=== PATIENT | male | born 1985 | race African-American/Black ===

== ENCOUNTER 2017-08-03 02:47 | Emergency (ER) | payer SELFPAY ==
[~2017-08-03] VITALS: Ht 165.1 cm; Wt 94.2 kg
[~2017-08-03 02:47] MED LIST: DICY1TAB26 PO; NAPR-576 PO
[2017-08-03 02:55] VITALS: BP 139/90; PULSE 60; RESP 18; TEMP 97.7; O2SAT 100
[2017-08-03] MEDS ORDERED: ONDANSETRON ODT 4 MG TAB PO ONE (03:45)
--- NOTE | 2017-08-03 04:36 | PD ---
HPI Chief Complaint: Headache Time Seen by Provider: 03:32 Travel History International Travel<30 days: No Contact w/Intl Traveler<30days: No Traveled to known affect area: No History of Present Illness HPI 31-year-old male presents to the emergency department for complaint of left- sided headache. Patient has had headache for 3-5 days is primarily left sided. Patient has family history of migraines; no history of cerebral aneurysm or stroke. Patient has noted some mild photophobia but no loss of vision or double vision. Headache is not sudden onset thunderclap or worst ever. Patient has noted some increased tearing from the left eye. Patient has had no recent febrile illness but did have a first or infection last week. Patient has not recently been on antibiotic. Patient denies neck stiffness or neck pain. Patient reports that he did have significant sinus congestion last week. No chest pain no shortness of breath no vomiting. They did have some nausea but has been taking Tylenol and Excedrin. Patient rates current pain 9/10 in intensity. Patient's had no upper or lower extremity numbness tingling or weakness or ataxia of gait. Patient takes no medications on a routine basis. Has had no injury or fall. [facility] Past Medical History Narrative Medical Past medical history negative surgical history occasional alcohol use positive tobacco use family history migraines; nursing notes reviewed Medical History: Denies Significant Hx Immunizations Current: No Tetanus Vaccination: Unknown Influenza Vaccination: No Past Surgical History Surgical History: No Previous Surgery Social History Alcohol Use: Yes (OCC) Tobacco Use: Yes (QUIT 5YRS) Substance Use: No Allergies-Medications (Allergen,Severity, Reaction): Coded Allergies: No Known Allergies (Verified , 10/21/15) Reported Meds & Prescriptions Reported Meds & Active Scripts Active No Active Prescriptions or Reported Medications Review of Systems Except as stated in HPI: all other systems reviewed are Neg General / Constitutional: No: Fever, Chills Eyes: Positive: Photophobia, No: Diploplia, Blurred Vision HENT: Positive: Headaches, No: Congestion, Neck Stiffness, Neck Pain Cardiovascular: No: Chest Pain or Discomfort Respiratory: No: Shortness of Breath Gastrointestinal: No: Nausea, Vomiting Genitourinary: No: Urgency, Frequency, Dysuria, Flank Pain Musculoskeletal: No: Myalgias, Arthralgias, Pain Skin: No Rash Neurologic: No: Weakness Psychiatric: No: Anxiety Hematologic/Lymphatic: No: Lymph Node Enlargement Physical Exam Narrative GENERAL: Well-developed well-nourished male in no acute distress no respiratory distress; GCS 15 SKIN: Warm and dry. HEAD: Atraumatic. Normocephalic. EYES: Pupils equal and round. No scleral icterus. No injection or drainage. Funduscopic exam no papilledema noted ENT: No nasal bleeding or discharge. Mucous membranes pink and moist. Mild tenderness to percussion over the frontal and maxillary sinuses NECK: Trachea midline. No JVD. Supple no nuchal rigidity no meningismus CARDIOVASCULAR: Regular rate and rhythm. RESPIRATORY: No accessory muscle use. Clear to auscultation. Breath sounds equal bilaterally. GASTROINTESTINAL: Abdomen soft, non-tender, nondistended. Hepatic and splenic margins not palpable. MUSCULOSKELETAL: Extremities without clubbing, cyanosis, or edema. No obvious deformities. NEUROLOGICAL: Awake and alert. No obvious cranial nerve deficits. Motor grossly within normal limits. Five out of 5 muscle strength in the arms and legs. No limb ataxia. No pronator drift. Normal speech. PSYCHIATRIC: Appropriate mood and affect; insight and judgment normal. Data Data Last Documented VS Vital Signs Date Time Temp Pulse Resp B/P (MAP) Pulse Ox O2 Delivery O2 Flow Rate FiO2 08/03/17 02:59 18 100 Room Air 08/03/17 02:55 97.7 60 139/90 (106) Orders Orders Ondansetron Odt (Zofran Odt) (08/03/17 03:45) Ct Brain W/O Iv Contrast(Rout) (08/03/17 ) Ketorolac Inj (Toradol Inj) (08/03/17 05:00) Ed Discharge Order (08/03/17 04:55) [facility] Medical Decision Making Medical Screen Exam Complete: Yes Emergency Medical Condition: Yes Medical Record Reviewed: Yes Interpretation(s) Vital Signs Date Time Temp Pulse Resp B/P (MAP) Pulse Ox O2 Delivery O2 Flow Rate FiO2 08/03/17 02:59 18 100 Room Air 08/03/17 02:55 97.7 60 18 139/90 (106) 100 Differential Diagnosis Tension versus migrainous versus cluster versus vascular cephalgia versus musculoskeletal pain versus posterior cervicalgia versus ICH Narrative Course Patient administered Zofran 4 mg sublingual along with CT brain noncontrast Toradol 60 mg IM administered Patient informed of imaging results Headache improved and patient is stable for outpatient management Diagnosis Primary Impression: Cephalgia Qualified Codes: G44.209 - Tension-type headache, unspecified, not intractable Referrals: Primary Care Physician call for appointment Patient Instructions: General Instructions Additional Instructions: Increase fluid hydration May use ibuprofen/Advil/Motrin 800 mg as often as every 8 hours as needed for headache or pain associated with inflammation Take acetaminophen/Tylenol as needed for fever 100.4F or greater Return to the emergency department for any concerns or change in condition No work times one day Follow-up with your primary care provider Scripts No Active Prescriptions or Reported Meds Disposition: 01 DISCHARGE HOME Condition: Stable Georgia Grimm MD Aug 03, 2017 04:36
--- NOTE | 2017-08-03 04:44 | RADRPT ---
EXAM DATE/TIME: 08/03/2017 03:55 [facility] COMPARISON: No previous studies available for comparison. INDICATIONS : Cephalgia. RADIATION DOSE: 57.98 CTDIvol (mGy) MEDICAL HISTORY : None SURGICAL HISTORY : None. ENCOUNTER: Initial ACUITY: 4 - 6 days PAIN SCALE: 10/10 LOCATION: Left occipital frontal TECHNIQUE: Multiple contiguous axial images were obtained of the head. Using automated exposure control and adj ustment of the mA and/or kV according to patient size, radiation dose was kept as low as reasonably a chievable to obtain optimal diagnostic quality images. DICOM format image data is available electro nically for review and comparison. FINDINGS: CEREBRUM: The ventricles are normal for age. No evidence of midline shift, mass lesion, hemorrhage or acute in farction. No extra-axial fluid collections are seen. POSTERIOR FOSSA: The cerebellum and brainstem are intact. The 4th ventricle is midline. The cerebellopontine angle i s unremarkable. EXTRACRANIAL: The visualized portion of the orbits is intact. SKULL: The calvaria is intact. No evidence of skull fracture. CONCLUSION: 1. No evidence of acute intracranial pathology. No masses are identified.8 Bruce Segal MD on August 03, 2017 at 4:42 Board Certified Radiologist. This report was verified electronically.
[2017-08-03] MEDS ORDERED: KETOROLAC TROMETHAMINE 60 MG/2 ML (IM) VIAL IM ONE (05:00)
[2017-08-03 05:35] VITALS: BP 132/78
== END 2017-08-03 05:39 | disposition home or self-care (01) ==
LOC: PHED 02:47
DX: G44.209 Tension-type headache, unspecified, not intractable (principal)
CPT/HCPCS: 70450; 96372; 99285; J1885

== ENCOUNTER 2017-12-30 23:58 | Emergency (ER) | payer SELFPAY ==
[~2017-12-30] VITALS: Ht 172.7 cm; Wt 89.0 kg
[2017-12-31 00:51] VITALS: BP 128/57; PULSE 73; RESP 18; TEMP 98.3; O2SAT 98
[2017-12-31 01:30] VITALS: BP_SYST 122; BP_SYST 128; BP_DIAS 57; BP_DIAS 62; PULSE 72; PULSE 73; RESP 16; TEMP 98.3; O2SAT 98; O2SAT 99
[2017-12-31 02:30] VITALS: BP 119/63; PULSE 80; RESP 16; O2SAT 100
--- NOTE | 2017-12-31 03:13 | PD ---
HPI Chief Complaint: ENT Complaint Time Seen by Provider: 03:07 Travel History International Travel<30 days: No Contact w/Intl Traveler<30days: No Traveled to known affect area: No History of Present Illness HPI The patient is a 32-year-old male that complains of bilateral ear pain, right ear worse than left. He states he has decreased hearing in the right ear. He denies any fever. The pain intensity level is 4/10 and sharp pain. PFSH Past Medical History Medical History: Denies Significant Hx Immunizations Current: No Past Surgical History Surgical History: No Previous Surgery Social History Alcohol Use: Yes ([facility]) Tobacco Use: No (QUIT 5YRS) Substance Use: No Allergies-Medications (Allergen,Severity, Reaction): Coded Allergies: No Known Allergies (Verified Adverse Reaction, Unknown, 12/31/17) Reported Meds & Prescriptions Reported Meds & Active Scripts Active No Active Prescriptions or Reported Medications Review of Systems Except as stated in HPI: all other systems reviewed are Neg Physical Exam Narrative GENERAL: Well-nourished, well-developed patient. SKIN: Focused skin assessment warm/dry. HEAD: Normocephalic. EYES: No scleral icterus. No injection or drainage. NECK: Supple, trachea midline. No JVD or lymphadenopathy. CARDIOVASCULAR: Regular rate and rhythm without murmurs, gallops, or rubs. RESPIRATORY: Breath sounds equal bilaterally. No accessory muscle use. GASTROINTESTINAL: Abdomen soft, non-tender, nondistended. MUSCULOSKELETAL: No cyanosis, or edema. BACK: Nontender without obvious deformity. No CVA tenderness. ENT: The left tympanic membrane and canal is normal. The right canal is full of wax which appears inspissated. Neither ear is tender. The eardrum on the right cannot be seen due to the wax. Data Data Last Documented VS Vital Signs Date Time Temp Pulse Resp B/P (MAP) Pulse Ox O2 Delivery O2 Flow Rate FiO2 12/31/17 01:42 16 12/31/17 01:30 98.3 73 128/57 (80) 98 Orders Orders Ear Irrigation (12/31/17 03:10) Abdadklc-Ignsjhra-Ye Otic Soln (Cortispo (12/31/17 03:45) Amoxicillin (Trimox) (12/31/17 03:45) MDM Medical Decision Making Medical Screen Exam Complete: Yes Emergency Medical Condition: Yes Medical Record Reviewed: Yes Differential Diagnosis Otitis externa, otitis media, malignant otitis externa-unlikely, cerumen impaction Narrative Course The right ear was irrigated so that the cerumen impaction was relieved. The patient states his hearing is greatly improved. The canal on the right is now visualized as is the tympanic membrane and shows a otitis media as well as an otitis externa. Impression: Right otitis media, right otitis externa Plan: The patient is given a prescription for Cortisporin otic drops as well as Keflex. Diagnosis Primary Impression: Right otitis media Additional Impressions: Right otitis externa Impacted cerumen, right ear Med/Other Pt SpecificInfo: Prescription(s) given Scripts Vphcwtcm-Dbpofchpf-IN Otic Drops (Jzwywazt-Lnpialqlu-KS Otic Drops) 1 % Soln 4 DROP RIGHT EAR QID for Infection, #1 BOTTLE 0 Refills Prov: Balwinder Machado MD 12/31/17 Cephalexin (Keflex) 500 Mg Capsule 500 MG PO Q8H for Infection, #30 CAP 0 Refills Prov: Balwinder Machado MD 12/31/17 Disposition: 01 DISCHARGE HOME Condition: Stable Balwinder Machado MD Dec 31, 2017 03:13
[2017-12-31] MEDS ORDERED: CEPH-460 PO (03:42)
[2017-12-31] MEDS ORDERED: CORTI10A RIGHT EAR (03:42)
[2017-12-31] MEDS ORDERED: NEOMYCIN/POLYMYXIN/HYDROCORT OTIC SOLN 10 ML BTL RIGHT EAR ONE (03:45)
[2017-12-31] MEDS ORDERED: AMOXICILLIN 875 MG TAB PO ONE (03:45)
[2017-12-31 04:00] VITALS: BP 125/71
== END 2017-12-31 04:28 | disposition home or self-care (01) ==
LOC: PHED 23:58
DX: H60.91 Unspecified otitis externa, right ear (principal); H66.91 Otitis media, unspecified, right ear
CPT/HCPCS: 99283